=== PATIENT | female | born 1960 | race Caucasian/White ===

== ENCOUNTER → 2017-04-19 | Outpatient (REF) | payer SELFPAY | LOC: M LAB REF 20:04 | PROVIDERS: ATTEND Physician Assistant Medical | DX: J02.9 Acute pharyngitis, unspecified (principal) ==

== ENCOUNTER → 2018-01-23 | Outpatient (CLI) | payer SELFPAY ==
[2018-01-26 00:06] LABS: Lyme Disease IgG/IgM Antibodie <0.91 ISR (0.00-0.90); Lyme Disease IgM Ab Quantitati <0.80 index (0.00-0.79)
== END ==
LOC: M ADAMS 17:50
DX: R21 Rash and other nonspecific skin eruption (principal)

== ENCOUNTER → 2018-02-09 | Outpatient (REF) | payer SELFPAY, OTHER ==
[2018-02-11 14:28] LABS: HPV HYBRID CAPTURE II Negative (Negative)
== END ==
LOC: M SFHCWAGY 14:52
DX: Z12.4 Encounter for screening for malignant neoplasm of cervix (principal)

== ENCOUNTER → 2018-02-16 | Outpatient (CLI) | payer SELFPAY, OTHER | LOC: M WHC 13:48 | DX: Z12.31 Encounter for screening mammogram for malignant neoplasm of breast (principal); Z95.0 Presence of cardiac pacemaker | CPT/HCPCS: 76830 ==

== ENCOUNTER → 2021-02-24 | Outpatient (CLI) | payer SELFPAY ==
[2021-02-24 14:25] LABS: ALBUMIN 3.9 GM/DL (3.2-5.2); ALT/SGPT 21 U/L (12-78); BILIRUBIN,TOTAL 0.5 MG/DL (0.2-1.0); BLOOD UREA NITROGEN 11 MG/DL (7-18); CALCIUM LEVEL 9.4 MG/DL (8.5-10.1); CARBON DIOXIDE LEVEL 27 MEQ/L (21-32); CHLORIDE LEVEL 109 MEQ/L (98-107); CHOLESTEROL LEVEL 199 MG/DL (<200); CHOLESTEROL RISK RATIO 2.926 (<5); CREATININE FOR GFR 0.64 MG/DL (0.55-1.30); GLOMERULAR FILTRATION RATE > 60.0 (>51); GLUCOSE, FASTING 93 MG/DL (70-100); HDL CHOLESTEROL 68 MG/DL (>40); LDL CHOLESTEROL 113 MG/DL (<100); MAGNESIUM LEVEL 2.4 MG/DL (1.8-2.4); NON-HDL-C 131 MG/DL; POTASSIUM SERUM 4.6 MEQ/L (3.5-5.1); SODIUM LEVEL 143 MEQ/L (136-145); TOTAL PROTEIN 6.7 GM/DL (6.4-8.2); TRIGLYCERIDES LEVEL 92 MG/DL (<150)
== END ==
LOC: M PLALAB 09:33
PROVIDERS: ATTEND Family Medicine
DX: Z13.1 Encounter for screening for diabetes mellitus (principal); Z13.220 Encounter for screening for lipoid disorders; R00.2 Palpitations

== ENCOUNTER → 2021-04-07 | Outpatient (REF) | payer SELFPAY | LOC: M SFHCWAGY 17:13 | PROVIDERS: ATTEND Nurse Practitioner Women's Health | DX: Z12.4 Encounter for screening for malignant neoplasm of cervix (principal); R87.612 Low grade squamous intraepithelial lesion on cytologic smear of cervix (LGSIL) | CPT/HCPCS: 87624; G0123 ==

== ENCOUNTER → 2021-04-10 | Outpatient (CLI) | payer SELFPAY ==
--- NOTE | 2021-04-10 15:42 | REP ---
INDICATION: ABNORMAL UTERINE BLEEDING,POSTMENOPAUSAL BLEEDING COMPARISON: 02/16/2018 TECHNIQUE: Transabdominal pelvic ultrasound followed by transvaginal examination for better evaluation of the endometrium and adnexa with color Doppler evaluation of the ovaries. FINDINGS: Bladder is unremarkable and measures 13.9 x 10.6 x 9.0 cm. Heterogeneous anteverted uterus measures 7.9 x 4.0 x 4.5 cm. The endometrial complex measures 3.7 mm thickness. No discrete uterine or endometrial abnormalities are appreciated. Incidental nabothian cysts up to 10 mm noted. Ovaries are not visualized. No pelvic fluid or adnexal mass lesion. IMPRESSION: No significant uterine abnormality appreciated. Ovaries not visualized. No pelvic free fluid. <Electronically signed by Sterling Jones > 04/10/21 [id number]
== END ==
LOC: M WHC 14:51
PROVIDERS: ATTEND Nurse Practitioner Women's Health
DX: N93.9 Abnormal uterine and vaginal bleeding, unspecified (principal); N95.0 Postmenopausal bleeding; N88.8 Other specified noninflammatory disorders of cervix uteri

== ENCOUNTER 2022-07-25 14:29 | Emergency (ER) | payer SELFPAY ==
[~2022-07-25] VITALS: Ht 167.6 cm; Wt 77.2 kg
[2022-07-25] MEDS ORDERED: OMEPRAZOLE 20MG CAP PO ONE (17:45)
[2022-07-25] MEDS ORDERED: MAGIC MOUTHWASH *ED ONLY* 5ML ORAL SYRINGE SS ONE (17:45)
[2022-07-25 19:43] LABS: BASO % 0.4 % (0.0-1.0); EOS # 0.1 10^3/uL (0.0-0.5); EOS % 0.9 % (0.0-3.0); HEMATOCRIT 41.1 % (36.0-47.0); HEMOGLOBIN 13.7 g/dl (12.0-15.5); LYMPH # 2.3 10^3/uL (1.5-5.0); MEAN CORPUSCULAR HGB CONC 33.3 g/dl (32.0-36.5); MEAN CORPUSCULAR VOLUME 90.1 fl (80.0-96.0); MONO # 0.5 10^3/uL (0.0-0.8); MONO % 6.3 % (2.0-8.0); NEUTROPHILS # 4.8 10^3/uL (1.5-8.5); NEUTROPHILS % 62.1 % (36.0-66.0); PLATELET COUNT, AUTOMATED 227 10^3/uL (150-450); RED BLOOD COUNT 4.56 10^6/uL (4.00-5.40); WHITE BLOOD COUNT 7.8 10^3/uL (4.0-10.0)
[2022-07-25 19:51] LABS: ALBUMIN 4.1 G/DL (3.2-5.2); BILIRUBIN,DIRECT 0.1 MG/DL (<0.4); BILIRUBIN,TOTAL 0.6 MG/DL (0.3-1.2); TOTAL PROTEIN 6.7 G/DL (5.7-8.2)
[2022-07-25] MEDS ORDERED: OMEP40CA4 PO (19:51)
[2022-07-25] MEDS ORDERED: MAGICMW SSP (20:27)
[2022-07-25 20:31] VITALS: BP 138/52
== END 2022-07-25 20:34 | disposition home or self-care (01) ==
LOC: M ED 14:29
DX: R07.0 Pain in throat (principal); I10 Essential (primary) hypertension; K21.9 Gastro-esophageal reflux disease without esophagitis

== ENCOUNTER → 2024-03-01 | Outpatient (CLI) | payer BC ==
[~2024-03-01] MED LIST: MAGICMW SSP; OMEP40CA4 PO
== END ==
LOC: M RAD 07:45
PROVIDERS: ATTEND Internal Medicine
DX: R10.2 Pelvic and perineal pain (principal)

== ENCOUNTER → 2025-07-22 | Outpatient (CLI) | payer SELFPAY | LOC: M WHC 08:40 | PROVIDERS: ATTEND Internal Medicine | DX: R10.21 Pelvic and perineal pain right side (principal) ==